=== PATIENT | female | born 1965 | race African-American/Black ===

== ENCOUNTER 2021-09-12 11:13 | Emergency (ER) | payer OTHER ==
[~2021-09-12] VITALS: Ht 170.2 cm; Wt 89.0 kg
[2021-09-12] MEDS ORDERED: LEVO25TA7 PO (11:26)
[2021-09-12] MEDS ORDERED: ATOR40TA70 PO (11:26)
[2021-09-12] MEDS ORDERED: IBUPROFEN 400MG TABLET PO SCH (12:15)
[2021-09-12 12:18] LABS: BASOPHILS % 0.8 % (0.0-2.0); EOSINOPHILS % 1.7 % (0.0-5.0); HEMATOCRIT. 41.7 % (36.0-48.0); LYMPHOCYTES % 30.9 % (20.0-50.0); MEAN CORPUSCULAR HEMOGLOBIN 31.6 pg (28.0-32.0); MEAN CORPUSCULAR VOLUME 94.3 fL (81.0-99.0); MEAN PLATELET VOLUME 9.1 fl (7.4-10.4); MONOCYTES % 4.1 % (2.0-8.0); NEUTROPHILS % 62.5 % (40.0-76.0); PLATELET 243 x1000/uL (130-400); RED BLOOD CELL COUNT 4.42 mill/uL (4.2-5.4); RED CELL DISTRIBUTION WIDTH 12.9 % (11.6-14.6)
[2021-09-12 12:24] LABS: CHLORIDE 111 mEq/L (98-107)
[2021-09-12 12:36] LABS: CLARITY URINE CLEAR (CLEAR); COLOR URINE YELLOW (YELLOW); KETONES URINE NEGATIVE (NEGATIVE); LEUKOCYTE ESTERASE URINE TRACE (NEGATIVE); NITRITE URINE NEGATIVE (NEGATIVE); OCCULT BLOOD URINE NEGATIVE (NEGATIVE); PH URINE 6.5 (4.5-8.0); PROTEIN URINE NEGATIVE (NEGATIVE); SPECIFIC GRAVITY URINE 1.016 (1.005-1.030); UROBILINOGEN URINE 0.2 E.U./dL (0.2-1.0)
[2021-09-12] MEDS ORDERED: KETOROLAC 30MG/ML VIAL IV ONE (13:15)
[2021-09-12 14:04] VITALS: BP 123/79
[2021-09-12] MEDS ORDERED: IBUP-2028 MT (15:42)
== END 2021-09-12 16:06 | disposition home or self-care (01) ==
LOC: EDBD 11:34 → ER 11:34
DX: R07.89 Other chest pain (principal); R06.02 Shortness of breath; R11.0 Nausea; F41.9 Anxiety disorder, unspecified; E78.00 Pure hypercholesterolemia, unspecified; Z98.890 Other specified postprocedural states; F12.10 Cannabis abuse, uncomplicated
CPT/HCPCS: 36415; 71045; 80053; 81003; 83880; 84484; 85025; 93005; 93970; 96374; 99285; J1885